=== PATIENT | male | born 1965 | race Caucasian/White ===

== ENCOUNTER 2018-04-04 14:00 | Outpatient (RCR) | payer BC, SELFPAY | END 2018-04-04 14:05 | disposition home or self-care (01) | LOC: PT 14:00 | PROVIDERS: Visit Provider Orthopaedic Surgery | DX: Z96.651 Presence of right artificial knee joint (principal) | CPT/HCPCS: 97010; 97014; 97016; 97110; 97140; 97163; G0283 ==

== ENCOUNTER → 2020-12-04 15:16 | Outpatient (CLI) | payer BC, SELFPAY | PROVIDERS: Visit Provider Internal Medicine Gastroenterology | DX: Z01.812 Encounter for preprocedural laboratory examination (principal); Z11.52 Encounter for screening for COVID-19; Z12.11 Encounter for screening for malignant neoplasm of colon | CPT/HCPCS: C9803; U0003; U0005 ==

== ENCOUNTER 2020-12-07 06:44 | Day surgery (SDC) | payer BC, SELFPAY ==
[2020-12-02 11:54] VITALS: BMI 29.0
[2020-12-07] VITALS (7 sets, daily range): BP systolic 135–176; BP diastolic 91–109; PULSE 53–80; RESP 18; TEMP 36.3–36.5; O2SAT 92–97
--- NOTE | 2020-12-07 08:04 | HMH.ANESCL ---
[facility] Anesthesia Checklist - Patient Identification Patient Identification: Arm Band - Structural Data Admitted From: Home Planned Operative Procedure/s: colonoscopy Consent for Planned Operative Procedure(s) Verified: Yes Verified Documents: Surgical Consent, History and Physical - NPO Status Verified Time NPO: 00:00 - Additional verifications Anesthesia Reactions: No - Airway Assessment C-Spine Mobility Assessed: Yes (mp2) TMJ Mobility Assessed: Yes Dentition: Good Dentition - Neurological Assessment Level of Consciousness: Awake, Alert - Anesthesia Plan Anesthesia Risk discussed: Yes Anesthesia Plan: Verified ASA Class: II Anesthesia Type: MAC [facility] History I have reviewed the patient's past medical history: Yes Medical History: Denies:: Cancer, Diabetes Mellitus Type 1, Diabetes Mellitus Type 2, Internal Pacemaker, MRSA, Seizures *Have you ever received a pneumonia vaccine?: No *Have you received a flu vaccine this season?: No Other Medical History: Reports: Hypothyroidism Anesthesia experience/problems:: nac Laterality Cases: Right: Total Knee Replacement Other Surgeries: Yes: Appendectomy, Hernia Repair, Thyroidectomy, Other. No: Pacemaker Amputation: No - *Social History Last grade of school completed: Advanced degree Smoking Status: Never smoker Alcohol Intake: current Alcohol Intake Frequency:: a few times a week Substance Use Type: denies use *Occupational Status:: employed Housing: house Household Members: spouse *Travel in the last 8 weeks: None Family Hx:: No significant family history
--- NOTE | 2020-12-07 08:08 | P.PCN_ITS ---
[facility] Procedure Note Procedure Note:: Colonoscopy Procedure Report: Colonoscopy with cold biopsies and cold snare polypectomy Endoscopist: Ted Hope II, MD Referring physician: Heriberto Mak MD Date of Procedure: December 07, 2020 Equipment: Olympus 190 variable stiffness pediatric colonoscope Sedation: MAC sedation Indication: Mr. Hines is a 55-year-old gentleman with the abrupt onset of diarrhea that occurred 10 days after his thyroidectomy in mid June 2020. He had antibiotics prior to the thyroidectomy (Dr. Vicente Rose) but his PCR gastrointestinal panel was negative for C. difficile and other bacterial pathogens. The patient did have a colonoscopy with wa in November 2017 and had left-sided diverticulosis but was otherwise normal. The patient was having up to 10 bowel movements a day before starting Lomotil. He reports that the Lomotil reduces his frequency by 50% (5-6 bowel movements daily). The patient reports no abdominal pain or crampy discomfort. He reports no blood or mucus with his bowel movements. He does have bowel urgency and frequency but no incontinence. He reports no gassiness or bloating. He reports no family history of colitis or colon cancer. His first cousin had Crohn's disease. Procedure: Prior to the procedure, a history and physical exam was performed, and patient's medications and allergies were reviewed. The risks, benefits and alternatives of the sedation and procedure were discussed with the patient. All questions were answered and informed consent was obtained. The patient was brought to the procedure room. Patient identification and proposed procedure were verified by the physician and the nurse. The patient was placed in a left lateral decubitus position and the scope was passed under direct vision. Throughout the procedure, the patient's blood pressure, pulse, and oxygen saturations were monitored continuously. The colonoscopy was accomplished without difficulty. The patient tolerated the procedure well. Findings: On digital rectal examination there was normal rectal tone. There were no external hemorrhoids. The prostate was 2+, mildly firm but symmetric without nodules. The colonoscope was introduced through the anal canal to the rectum and advanced to the cecum. The ileocecal valve and appendiceal orifice were identified. The scope was advanced a short distance into the ileum which appeared grossly normal. The scope was then withdrawn into the colon. The cecum, ascending and transverse colon and mucosa were grossly normal. Cold biopsies were taken from the right colon and separately from the left colon to rule out microscopic colitis. There was a diminutive 4 mm polyp in the descending colon and this was removed via cold snare polypectomy. There were scattered diverticuli throughout the descending and sigmoid colon (LEFT colon). The rectum itself was normal. Upon retroflexion within the rectum there were grade 1-2 internal hemorrhoids. The preparation was excellent throughout with [place] Preparation Score of 9. The cecal time was 12 minutes. Impression: 1. Diminutive descending colon polyp 2. Left-sided diverticulosis 3. Grade 1-2 internal hemorrhoids Plan: I will follow-up the biopsies to rule out microscopic colitis. If the biopsies are indicative of microscopic/lymphocytic colitis, I will prescribe budesonide (Entocort). If the biopsies are negative, I would consider Viberzi or Colestid. I would also consider imaging study of abdomen and pelvis. We will discuss treatment options.
--- NOTE | 2020-12-07 09:18 | SUR.PHASEII ---
DR HSIEH MADE AWARE OF HYPERTENSION. DISCUSSED WITH PT TO FOLLOW UP WITH PRIMARY CARE AND TO MONITOR BP OVER NEXT SEVERAL DAYS. PT AND SPOUSE VERBALIZED UNDERSTANDING.
== END 2020-12-07 09:23 | disposition home or self-care (01) ==
LOC: OUTP 06:48
PROVIDERS: PCP Internal Medicine; Visit Provider Internal Medicine Gastroenterology
PROC: 0DJD8ZZ Inspection of Lower Intestinal Tract, Via Natural or Artificial Opening Endoscopic (ICD-10-PCS; CPT 45378; principal; 2020-12-07 08:00)
DX: K63.5 Polyp of colon (principal); K57.32 Diverticulitis of large intestine without perforation or abscess without bleeding; K64.0 First degree hemorrhoids; E89.0 Postprocedural hypothyroidism; Z79.899 Other long term (current) drug therapy
CPT/HCPCS: 45385; 45380

== ENCOUNTER 2024-04-30 16:48 | Outpatient (CLI) | payer BC, SELFPAY ==
[2024-05-04 04:08] LABS: ALT (SGPT) P5P 84 IU/L (0-55); AST (SGOT) P5P 62 IU/L (0-40); Alpha 2-Macroglobulins, Qn 398 mg/dL (110-276); Apolipoprotein A-1 159 mg/dL (101-178); Bilirubin, Total 0.5 mg/dL (0.0-1.2); Cholesterol, Total 166 mg/dL (100-199); Fibrosis Score 0.75 (0.00-0.21); GGT 184 IU/L (0-65); Glucose 90 mg/dL (70-99); Haptoglobin 113 mg/dL (29-370); Steatosis Score 0.55 (0.00-0.40); Triglycerides 154 mg/dL (0-149)
== END 2024-04-30 23:59 | disposition home or self-care (01) ==
LOC: LAB 16:49
PROVIDERS: PCP Internal Medicine; Visit Provider Internal Medicine Gastroenterology
DX: K76.0 Fatty (change of) liver, not elsewhere classified (principal); R74.01 Elevation of levels of liver transaminase levels
CPT/HCPCS: 36415

== ENCOUNTER 2024-05-03 11:14 | Outpatient (CLI) | payer BC, SELFPAY ==
[2024-05-06 01:35] LABS: Pancreatic Elastase, Fecal >800 (>200)
== END 2024-05-03 23:59 | disposition home or self-care (01) ==
LOC: LAB.DROPOF 11:14
PROVIDERS: PCP Internal Medicine; Visit Provider Internal Medicine Gastroenterology
DX: R14.0 Abdominal distension (gaseous) (principal); R19.5 Other fecal abnormalities
CPT/HCPCS: 82656

== ENCOUNTER 2024-06-27 11:30 | Day surgery (SDC) | payer BC, SELFPAY ==
[2024-06-25 10:32] VITALS: BMI 27.9
[2024-06-27 11:58] VITALS: BP 139/70; PULSE 74; RESP 18; TEMP 36.4; O2SAT 97
[2024-06-27 13:15] VITALS: O2SAT 100
--- NOTE | 2024-06-27 13:15 | P.HP_ITS ---
History of Present Illness *Admission Date: 06/27/24 *Reason for visit:: Abdominal pain, bloating, gassiness and bowel irregularity *History of present illness: Mr. Hines is a 59-year-old gentleman who has a history of lymphocytic colitis. This was diagnosed at the time of his colonoscopy in November 2020. The patient was on budesonide initially for 12 weeks and tapered. His diarrhea recurred. He has been able to maintain control of symptoms and remission by taking budesonide 3 mg p.o. nightly. He does have some fragile bruising if he bumps into something on this treatment but otherwise has no side effects. The patient does state that 2 months ago while driving back from [facility], he developed severe cramps and had a very small bowel movement but could not urinate. He would pass very little stool and had several trips with incomplete defecation. 3 weeks later, he had the passage of a large amount of bright red blood for 2 days but this stopped. Formerly he would use hemorrhoid suppositories occasionally. The patient's colonoscopy in November 2020 reveale d a single polyp (tubular adenoma). The patient now reports some abdominal discomfort/mild abdominal pain that moves around the abdomen and can be on the left or right side. He does have this fairly frequently. He did have a CAT scan in [place] that was essentially normal. He also had blood work and had mildly elevated transaminases (AST 46, ALT 53). The CAT scan did show steatosis. The patient reports no alcohol. He does report a ridge in the center part of his abdomen when doing sit ups or strenuous exercise (diastases of the rectus abdominal muscle). He does have heterozygous alpha 1 antitrypsin phenotype MZ. [facility] Disclaimer: The information contained in this section may have been updated after the patient was seen, as this information can be updated by other users. Medical History (Updated 06/27/24 @ 13:17 by Ted Hope II, MD) Alpha 1-antitrypsin PiMS phenotype History of kidney stones GERD (gastroesophageal reflux disease) History of colitis Hypertension Bloating Surgical History Hx of hernia repair History of right knee joint replacement Hx of appendectomy Hx of partial thyroidectomy Family History Mother Breast cancer Social History Smoking Status: Never smoker alcohol intake: former substance use type: denies use current occupational status: employed Travel in the last 8 weeks: None household members: spouse housing: house current occupational exposures/hazards: No caffeine: No Have you lived/traveled outside US in past 30 days?: No Contact w/someone who lives/traveled outside US past 30 days?: No Exposure to someone with infectious disease in past 14 days?: No Do you have a fever (greater than 100.4 F or 38 C)?: No Have you tested positive for COVID-19: No Exposed to someone with COVID-19 in past 14 days?: No Do you have a sore throat?: No Do you have a cough?: No Do you have any weakness?: No Do you have any diarrhea?: No Are you experiencing any unusual bleeding?: No Do you have any muscle aches/pain?: No Do you have any abdominal pain?: No Are you experiencing loss of taste or smell?: No Other Medical History Have you received the Flu Vaccine for this season: No Have you received the Pneumonia Vaccine: No Review of Systems Review of Systems Review of systems (narrative): Negative *Cardiovascular Comments: Negative *Gastrointestinal Comments: Negative *Genitourinary Comments: Negative *Musculoskeletal Comments: Negative *Neurologic Comments: Negative Meds Home Medications and Allergies Home Medications ?Medication ?Instructions ?Recorded ?Confirmed ?Type omeprazole 20 mg tablet,delayed 20 mg PO DAILY GERD 12/07/20 06/25/24 History release allopurinol 300 mg tablet 300 mg PO DAILY 04/30/24 06/25/24 History budesonide 3 mg 3 mg PO DAILY 04/30/24 06/25/24 History capsule,delayed,extended release levocetirizine 5 mg tablet (Xyzal) 5 mg PO DAILY 04/30/24 06/25/24 History losartan 100 mg tablet 100 mg PO DAILY 04/30/24 06/25/24 History montelukast 10 mg tablet 10 mg PO DAILY 04/30/24 06/25/24 History sodium,potassium,mag sulfates 17.5 See Rx Instructions PO .COMPLEX 06/11/24 06/25/24 Rx gram-3.13 gram-1.6 gram oral soln #354 mL (Suprep Bowel Prep Kit) New Prescriptions to Start Prescriptions: Allergies Allergy/AdvReac Type Severity Reaction Status Date / Time No Known Allergies Allergy Verified 06/25/24 10:29 Exam Data for Last 24 hours Vital signs and Labs for Last 24 Hours: Temp Pulse Resp BP Pulse Ox O2 Del Method 97.6 F 74 18 139/70 97 Room Air 06/27/24 11:58 06/27/24 11:58 06/27/24 11:58 06/27/24 11:58 06/27/24 11:58 06/27/24 11:58 I & O for Last 24 hours: Intake & Output 06/24/24 06/25/24 06/26/24 06/27/24 23:59 23:59 23:59 23:59 Weight 195 lb *Routine HEENT Exam Head: Present normocephalic Eye: Present EOMI and PERRL ENT: Present mucous membranes moist *Routine Neck Exam Neck: Present supple *Routine Respiratory Exam Respiratory: Present CTA bilaterally *Routine Cardiovascular Exam Cardiovascular: Present RRR *Routine Abdominal Exam Abdominal: Present soft and normoactive bowel sounds; Absent tenderness *Routine Rectal Exam Rectal:: deferred *Routine Genitalia Exam Genitalia:: deferred *Routine Extremities Exam Extremities: Absent cyanosis, clubbing or edema *Routine Skin Exam Skin: Present warm; Absent rash *Routine Neurological Exam Neurological: Present alert and oriented X3 Assessment and Plan *Assessment and plan (1) Bloating: Status: Acute Category: Medical Code(s): R14.0 - Abdominal distension (gaseous) (2) Gassiness: Status: Acute Category: Medical Code(s): R14.0 - Abdominal distension (gaseous) (3) Abdominal pain: Status: Acute Category: Medical Code(s): R10.9 - Unspecified abdominal pain (4) Loose stools: Status: Acute Category: Medical Code(s): R19.5 - Other fecal abnormalities (5) Bright red blood per rectum: Status: Acute Category: Medical Code(s): K62.5 - Hemorrhage of anus and rectum Plan A/P: 1. Abdominal pain with bloating and gassiness with loose stools and interm ittent bright red blood per rectum is the preprocedural diagnosis. The patient will be anesthetized/sedated using MAC sedation. The patient has been seen and examined. Cardiac and lung assessment prior to the examination is stable. Proceed with planned EGD and colonoscopy
--- NOTE | 2024-06-27 13:24 | HMH.PROCNOTE ---
[facility] Procedure Note Date: 06/27/24 Time: 13:29 Procedure Note:: Upper Endoscopy Procedure Report: Esophagogastroduodenoscopy with cold biopsies Endoscopost: Ted Hope II, MD Referring Physician: Heriberto Mak MD Date of Procedure: June 27, 2024 Equipment: Olympus GIF 190 standard upper endoscope Sedation: MAC sedation Indications: Mr. Hines is a 59-year-old gentleman who is here for diagnostic upper endoscopy and colonoscopy. He does have a history of fatty liver on CAT scan and mildly elevated transaminases. His recent fibrosis or was indicative of stage F4 fibrosis/early cirrhosis. He previously has a history of lymphocytic colitis. This was diagnosed at the time of his colonoscopy in November 2020. The patient was on budesonide initially for 12 weeks and tapered. His diarrhea recurred. He has been able to maintain control of symptoms and remission by taking budesonide 3 mg p.o. nightly. He does have some fragile bruising if he bumps into something on this treatment but otherwise has no side effects. The patient does state that 2 months ago while driving back from [facility], he developed severe cramps and had a very small bowel movement but could not urinate. He would pass very little stool and had several trips with incomplete defecation. 3 weeks later, he had the passage of a large amount of bright red blood for 2 days but this stopped. Formerly he would use hemorrhoid suppositories occasionally. The patient's colonoscopy in November 2020 revealed a single polyp (tubular adenoma). The patient now reports some abdominal discomfort/mild abdominal pain that moves around the abdomen and can be on the left or right side. He does have this fairly frequently. He did have a CAT scan in [place] that was essentially normal. He also had blood work and had mildly elevated transaminases (AST 46, ALT 53). The CAT scan did show steatosis. The patient reports no alcohol. He does report a ridge in the center part of his abdomen when doing sit ups or strenuous exercise (diastases of the rectus abdominal muscle). He does have heterozygous alpha 1 antitrypsin phenotype MZ. Procedure: Prior to the procedure, a history and physical exam was performed, and patient's medications and allergies were reviewed. The risks, benefits and alternatives of the sedation and procedure were discussed with the patient. All questions were answered and informed consent was obtained. The patient was brought to the procedure room. Patient identification and proposed procedure were verified by the physician and the nurse. The patient was placed in a left lateral decubitus position and the scope was passed under direct vision. Throughout the procedure, the patient's blood pressure, pulse, and oxygen saturations were monitored continuously. The upper GI endoscopy was accomplished without difficulty. The patient tolerated the procedure well. Findings: The scope was passed directly into the upper esophagus and advanced to the third portion of the duodenum. The post bulbar duodenum and duodenal bulb were normal with normal mucosa and conniventes. The scope was withdrawn through a normal duodenal bulb and pylorus into the stomach. There was some mild reactive gastropathy of the antrum. The body and fundus of the stomach were normal. Upon retroflexion there was a very small sliding 1 to 2 cm hiatal hernia. Biopsies were taken from the antrum. The scope was then withdrawn into the esophagus. There was no evidence of reflux esophagitis or Longoria's. There appeared to be a very faint grade 0?1 esophageal varices. The remainder of the esophageal mucosa was normal. Impression: 1. Very faint grade 0?1 esophageal varices 2. Mild antral gastropathy Plan: There was no evidence of portal gastropathy. He does have very early well compensated cirrhosis/DUMONT and does have a history of heterozygous alpha 1 antitrypsin deficiency (phenotype MZ). We will discuss treatment options including Rezdiffra. I will proceed with colonoscopy.
--- NOTE | 2024-06-27 13:32 | P.PNANES_ITS ---
[facility] Disclaimer: The information contained in this section may have been updated after the patient was seen, as this information can be updated by other users. Medical History Alpha 1-antitrypsin PiMS phenotype History of kidney stones GERD (gastroesophageal reflux disease) History of colitis Hypertension Bloating Surgical History Hx of hernia repair History of right knee joint replacement Hx of appendectomy Hx of partial thyroidectomy Family History Mother Breast cancer Social History Smoking Status: Never smoker alcohol intake: former substance use type: denies use current occupational status: employed Travel in the last 8 weeks: None household members: spouse housing: house current occupational exposures/hazards: No caffeine: No Have you lived/traveled outside US in past 30 days?: No Contact w/someone who lives/traveled outside US past 30 days?: No Exposure to someone with infectious disease in past 14 days?: No Do you have a fever (greater than 100.4 F or 38 C)?: No Have you tested positive for COVID-19: No Exposed to someone with COVID-19 in past 14 days?: No Do you have a sore throat?: No Do you have a cough?: No Do you have any weakness?: No Do you have any diarrhea?: No Are you experiencing any unusual bleeding?: No Do you have any muscle aches/pain?: No Do you have any abdominal pain?: No Are you experiencing loss of taste or smell?: No [facility] Anesthesia Checklist Patient Identification Patient Identification: Arm Band and Verbal (Name & ) Structural Data Admitted From: Home Planned Operative Procedure/s: EGD, colonscopy Consent for Planned Operative Procedure(s) Verified: Yes Verified Documents: Surgical Consent NPO Status Verified Time NPO: 00:00 Additional verifications Anesthesia Reactions: No Airway Assessment Mallampati Score:: Class I Neurological Assessment Level of Consciousness: Awake, Alert and Appropriate Hx Seizures: No Numbness or tingling in extremities: No Anesthesia Plan Anesthesia Risk discussed: Yes Anesthesia Plan: Verified ASA Class: II Anesthesia Type: MAC
--- NOTE | 2024-06-27 13:33 | HMH.PROCNOTE ---
[facility] Procedure Note Date: 06/27/24 Time: 13:49 Procedure Note:: Colonoscopy Procedure Report: Colonoscopy with cold snare polypectomy and cold biopsies Endoscopist: Ted Hope II, MD Referring physician: Heriberto Mak MD Date of Procedure: June 27, 2024 Equipment: Olympus 190 variable stiffness pediatric colonoscope Sedation: MAC sedation Indication: Mr. Hines is a 59-year-old gentleman who is here for diagnostic upper endoscopy and colonoscopy. He does have a history of fatty liver on CAT scan and mildly elevated transaminases. His recent fibrosis or was indicative of stage F4 fibrosis/early cirrhosis. He previously has a history of lymphocytic colitis. This was diagnosed at the time of his colonoscopy in November 2020. The patient was on budesonide initially for 12 weeks and tapered. His diarrhea recurred. He has been able to maintain control of symptoms and remission by taking budesonide 3 mg p.o. nightly. He does have some fragile bruising if he bumps into something on this treatment but otherwise has no side effects. The patient does state that 2 months ago while driving back from [facility], he developed severe cramps and had a very small bowel movement but could not urinate. He would pass very little stool and had several trips with incomplete defecation. 3 weeks later, he had the passage of a large amount of bright red blood for 2 days but this stopped. Formerly he would use hemorrhoid suppositories occasionally. The patient's colonoscopy in November 2020 revealed a single polyp (tubular adenoma). The patient now reports some abdominal discomfort/mild abdominal pain that moves around the abdomen and can be on the left or right side. He does have this fairly frequently. He did have a CAT scan in [place] that was essentially normal. He also had blood work and had mildly elevated transaminases (AST 46, ALT 53). The CAT scan did show steatosis. The patient reports no alcohol. He does report a ridge in the center part of his abdomen when doing sit ups or strenuous exercise (diastases of the rectus abdominal muscle). He does have heterozygous alpha 1 antitrypsin phenotype MZ. Procedure: Prior to the procedure, a history and physical exam was performed, and patient's medications and allergies were reviewed. The risks, benefits and alternatives of the sedation and procedure were discussed with the patient. All questions were answered and informed consent was obtained. The patient was brought to the procedure room. Patient identification and proposed procedure were verified by the physician and the nurse. The patient was placed in a left lateral decubitus position and the scope was passed under direct vision. Throughout the procedure, the patient's blood pressure, pulse, and oxygen saturations were monitored continuously. The colonoscopy was accomplished without difficulty. The patient tolerated the procedure well. Findings: On digital rectal examination there was normal rectal tone. The colonoscope was introduced through the anal canal to the rectum and advanced to the cecum. The ileocecal valve and appendiceal orifice were identified. The scope was advanced a short distance into the ileum which appeared grossly normal. The scope was then withdrawn into the colon. There were 4 polyps (cecum x 1 (5 mm), ascending x 2 (5 and 18 mm (laterally spreading granular sessile adenoma) and transverse x 1 (5 mm)). These were all removed via cold snare polypectomy. There was a slightly mosaic pattern especially in the left colon (descending and sigmoid) suggestive of active lymphocytic colitis. Random biopsies were taken from both the right and left colon to rule out microscopic/lymphocytic colitis. There were scattered diverticuli throughout the descending and sigmoid colon (LEFT colon). The rectum itself was normal. Upon retroflexion within the rectum there were grade 2 internal hemorrhoids. The preparation was excellent throughout with [place] Preparation Score of 9. The cecal time was 17 minutes. Impression: 1. Ascending colon polyp (18 mm)?advanced adenoma 2. Additional 3 diminutive colon polyps 3. Left-sided diverticulosis 4. Mucosal mosaic pattern suggestive of active microscopic/lymphocytic colitis 5. Grade 2 internal hemorrhoids Plan: I will follow-up the polyp histology and recommend repeat surveillance colonoscopy again in 3 years based upon the size and nature of the adenomatous polyps. I will also follow-up the biopsies to rule out active lymphocytic colitis causing his diarrhea. I would like for him to continue bulking psyllium fiber supplementation. I would also recommend continuing budesonide if the lymphocytic colitis is active. We will discuss follow-up on the DUMONT and well compensated cirrhosis.
[2024-06-27 13:56] VITALS: BP 105/71; PULSE 89; RESP 18; TEMP 36.1; O2SAT 94
[2024-06-27 14:06] VITALS: BP 104/74; PULSE 75; RESP 18; O2SAT 97
[2024-06-27 14:16] VITALS: BP 104/78; PULSE 89; RESP 18; O2SAT 97
[2024-06-27 14:26] VITALS: BP 105/81; PULSE 73; RESP 18; O2SAT 96
== END 2024-06-27 14:35 | disposition home or self-care (01) ==
PROVIDERS: PCP Internal Medicine; Visit Provider Internal Medicine Gastroenterology
PROC: 0DJ08ZZ Inspection of Upper Intestinal Tract, Via Natural or Artificial Opening Endoscopic (ICD-10-PCS; CPT 45378; principal; 2024-06-27 13:30)
DX: D12.6 Benign neoplasm of colon, unspecified (principal); K63.5 Polyp of colon; K57.30 Diverticulosis of large intestine without perforation or abscess without bleeding; K64.1 Second degree hemorrhoids; K44.9 Diaphragmatic hernia without obstruction or gangrene; I85.00 Esophageal varices without bleeding; K31.9 Disease of stomach and duodenum, unspecified; R14.0 Abdominal distension (gaseous); R10.9 Unspecified abdominal pain; R19.5 Other fecal abnormalities; K62.5 Hemorrhage of anus and rectum; Z86.0100 Personal history of colon polyps, unspecified
CPT/HCPCS: 43239; 45380; 45385

== ENCOUNTER 2024-09-13 09:23 | Outpatient (CLI) | payer BC, SELFPAY ==
--- OUTSIDE RECORDS SUMMARY | 2024-09-13 09:25 | XMS_ITS | Clinical Summary ---
Author Organization Healthcare Address [address] [place] [address] Care Team Providers Care Manager Service Desk Name Role Phone Unavailable Primary Care Provider Unavailabl e Family History Medical History Relation Name Comments Breast cancer Mother Conversions - Other Mother Patient' s mother is Relation Name Status Comments Mother Social History Tobacco Use Types Packs/Day Years Used Date Smoking Tobacco: Never Sex and Gender Information Value Date Recorded Sex Assigned at Not on file Legal Sex Male 7:59 PM EDT Gender Identity Not on file Sexual Orientation Not on file Last Filed Vital Signs Vital Sign Reading Time Taken Comments Blood Pressure - - Pulse - - Temperature - - Respiratory Rate - - Oxygen Saturation - - Inhaled Oxygen Concentration - - Weight 95.3 kg (210 lb 0.2 oz) 08/11/2016 3:17 P M EDT Height 175.3 cm (5' 9 ) 08/11/2016 3:17 PM EDT Body Mass Index 31.01 08/11/2016 3:17 PM EDT Plan of Treatment Not on file
--- OUTSIDE RECORDS SUMMARY | 2024-09-13 09:25 | XMS_ITS | Referral Summary ---
Author Organization [facility] Address [address] [place] [address] Care Team Providers Care Burnisher Name Role Phone Unavailable Primary Care Provider Unavailabl e Social History Tobacco Use Types Packs/Day Years Used Date Smoking Tobacco: Never Assessed Sex and Gender Information Value Date Recorded Sex Assigned at Male 09/21/2021 8:20 PM CDT Legal Sex Male 8:20 PM CDT Gender Identity Male 09/21/2021 8:20 PM CDT Sexual Orientation Not on file Plan of Treatment Not on file
--- OUTSIDE RECORDS SUMMARY | 2024-09-13 09:25 | XMS_ITS | Clinical Summary ---
Author Organization [facility] Address [address] [place] [address] Care Team Providers Care [employer] Agriculture Teacher Name Role Phone Unavailable Primary Care Provider [...]
[2024-09-13 09:47] LABS: Basophils # 0.1 K/mm3 (0-0.2); Basophils % 0.7 % (0.1-2.0); Eosinophils # 0.3 Kmm3 (0.0-0.4); Eosinophils % 4.8 % (0.1-12.0); Hemoglobin 15.4 g/dL (14.1-18.0); Immature Granulocytes # 0.04 10^3uL; Immature Granulocytes % 0.6 %; Lymphocytes # 1.5 K/mm3 (0.7-4.5); Lymphocytes % 21.9 % (10-50); Mean Corpuscular HGB Conc 33.5 g/dL (31.8-35.4); Mean Corpuscular Hemoglobin 32.1 pg (27.0-31.2); Mean Corpuscular Volume 95.8 fl (80-94); Mean Platelet Volume 11.2 fl (7.4-10.4); Monocytes # 0.5 K/mm3 (0.1-1.0); Monocytes % 7.5 % (1.7-9.3); Neutrophils # 4.3 K/mm3 (1.8-7.8); Neutrophils % 64.5 % (37.0-80.0); Nucleated Red Blood Cells # 0 10^3/uL; Nucleated Red Blood Cells % 0 %; Platelet Count 165 K/mm3 (142-424); Red Cell Distribution Width 13.3 % (11.5-17.5); Red Cell Distribution Width-SD 47.7 fL; White Blood Count 6.7 K/mm3 (4.8-10.8)
[2024-09-13 10:10] LABS: Albumin Level 3.9 g/dl (3.5-5.0); Chloride 111 mmol/L (98-107); Potassium 4.6 mmoL/L (3.5-5.1); Sodium 143 mmol/L (136-145)
[2024-09-13 10:13] LABS: Alanine Aminotransferase 40 U/L (12-78); Albumin/Globulin Ratio 2.1 (1.1-1.8); Alkaline Phosphatase 112 U/L (38-126); Anion Gap 5.6 mEq/L (5-15); Aspartate Amino Transferase 53 U/L (17-59); Bilirubin,Total 1.1 mg/dl (0.2-1.3); Blood Urea Nitrogen 13 mg/dl (9-20); Calcium 8.9 mg/dl (8.4-10.2); Carbon Dioxide 31 mmol/L (22.0-30.0); Estimated Glomerular Filt Rate 99 ml/min (>60); GFR (African American) 119 ML/MIN (>60); Globulin 1.9 g/dL (1.3-3.2); Glucose 85 mg/dl (74-100); Total Protein,Serum 5.8 g/dl (6.3-8.2)
== END 2024-09-13 23:59 | disposition home or self-care (01) ==
LOC: LAB 09:23
PROVIDERS: PCP Internal Medicine; Visit Provider Internal Medicine Gastroenterology
DX: K76.0 Fatty (change of) liver, not elsewhere classified (principal)
CPT/HCPCS: 36415; 80053; 82172; 82247; 82465; 82947; 82977; 83010; 83883; 84450; 84460; 84478; 85025

== ENCOUNTER 2024-10-17 07:20 | Outpatient (CLI) | payer BC, SELFPAY ==
--- OUTSIDE RECORDS SUMMARY | 2024-10-17 07:23 | XMS_ITS | Clinical Summary ---
[facility] Organization [facility] Address [address] [place] [address] Care Team Providers Care Electronic Technician Name Role Phone Joey Mak MD Primary Care Provider Allergies No known active allergies Medications acyclovir (ZOVIRAX) 800 MG tablet Take 800 mg by mouth Daily. Active Social History Tobacco Use Types Packs/Day Years Used Date Smoking Tobacco: Never Smokeless Tobacco: Never Alcohol Use Standard Drinks/Week Comments Yes 0 (1 standard drink = 0.6 oz pur e alcohol) 1 mixed drink/week Abuse Screen Answer Date Recorded Unsafe at Home or Work/School Not on file Feels Threatened by Someone? Not on file 01/2023 Does Anyone Keep You from Co ntacting Others or Doint Things Outside the Home? Not on file 01/04/2023 Physical Sign of Abuse Present Not on file 1 Housing Stability Answer Date Recorded Current Living Arrangements Not on file 12/25 Potentially Unsafe Housing Conditions Not on car e 01/04/2023 Family and Community Support Answer Ambrocio e Recorded Help with Day-to-Day Activities Not on file 01/04/2023 Lonely or Isolated Not on file 01/04/2023 Employment Answer Date Recorded Do you want help finding or keeping work or a adam b? Not on file 01/04/2023 Disabilities Answer Date Recorded Concentrating, Remembering, or Making Decisions Difficulty Not on file 01/04/2023 Doing Errands Independently Difficulty Not on fi le 01/04/2023 Education Answer Date Recorded Help with school or training? Not on file Preferred Language Not on file 01/04/2023 Sex and Gender Information Value Date Recorded Sex Assigned at Not on file Legal Sex Male 10:10 AM EST Gender Identity Not on file Sexual Orientation Not on file Last Filed Vital Signs Vital Sign Reading Time Taken Comments Blood Pressure 144/87 04/21/2021 9:20 AM EST Pulse 72 04/21/2021 9:20 AM EST Temperature 36.1 C (97 F) 04/21/2021 9:20 AM EST Respiratory Rate 16 04/21/2021 9:20 AM EST Oxygen Saturation 97% 04/21/2021 9:20 AM EST Inhaled Oxygen Concentration - - Weight 91.6 kg (202 lb) 04/21/2021 6:29 AM EST Height 177.8 cm (5' 10 ) 04/21/2021 6:29 AM EST Body Mass Index 28.98 04/21/2021 6:29 AM EST Plan of Treatment Health Maintenance Due Date Last Done Comments TDAP/TD VACCINES (1 - Tdap) 01/07/1983 COLOGUARD 01/07/2009 COLON CANCER SCREENING 5 YEAR SIGMOIDOSCOPY 01/07/2009 COLONOSCOPY 01/07/2009 COLORECTAL CANCER SCREENING 01/07/2009 CT COLONOGRAPHY 01/07/2009 FECAL OCCULT BLOOD TEST 01/07/2009 FIT Testing (1 year) 01/07/2009 Pneumococcal Vaccine 50+ (1 of 1 - PCV) 01/07/2014 ZOSTER VACCINE (1 of 2) 01/07/2014 ANNUAL PHYSICAL 04/19/2020 HEPATITIS C SCREENING 04/19/2020 COVID-19 Vaccine (2 - 2023- season) 2023 INFLUENZA VACCINE 12/25/2024 Insurance [facility] PPO Care Teams Electronic Technician Relationship Specialty Start Date End Date Joey Mak MD PCP - General Internal Medicine 04/13/20
--- OUTSIDE RECORDS SUMMARY | 2024-10-17 07:23 | XMS_ITS | Clinical Summary ---
Author Organization [facility] ([place], [place], [place], [place]) Address [address] [place] [address] Care Team Providers Care As400 Administrator Name Role Phone Unavailable Primary Care Provider [...]
--- OUTSIDE RECORDS SUMMARY | 2024-10-17 07:23 | XMS_ITS | Referral Summary ---
Author Organization [facility] ([place], [place], [place], [place]) Address [address] [place] [address] Care Team Providers Care Fun House Attendant Name Role Phone Unavailable Primary Care Provider [...]
--- OUTSIDE RECORDS SUMMARY | 2024-10-17 07:23 | XMS_ITS | Clinical Summary ---
Author Organization [facility] Address [address] [place] [address] Care Team Providers Care Coping Machine Operator Name Role Phone Unavailable Primary Care Provider [...]
--- NOTE | 2024-10-17 07:30 | US_ITS ---
FINAL REPORT TECHNIQUE: Multiple transverse and longitudinal images CLINICAL HISTORY: montalvo FINDINGS: There is cholelithiasis with at least 1 gallstone seen in the proximal gallbladder measuring up to 17 mm. No acute gallbladder disease. Evidence of biliary obstruction. No biliary ductal dilatation is appreciated. No fluid collections are seen. Limited portions of the right liver are unremarkable. Limited portions of the right kidney are unremarkable. Pancreas is largely obscured. IMPRESSION: Unremarkable liver. Uncomplicated cholelithiasis. Reviewed, Interpreted and Dictated by Kenya Martinez MD Transcribed by Astrid Hernández Authenticated and [facility]
[2024-10-17 08:13] LABS: Hematocrit 46.0 % (42.0-52.0); Hemoglobin 14.9 g/dL (14.1-18.0); Immature Granulocytes % 0.3 %; Mean Corpuscular HGB Conc 32.4 g/dL (31.8-35.4); Mean Corpuscular Hemoglobin 31.4 pg (27.0-31.2); Mean Corpuscular Volume 97.0 fl (80-94); Nucleated Red Blood Cells % 0 %; Platelet Count 129 K/mm3 (142-424); Red Blood Count 4.74 M/mm3 (4.60-6.20); Red Cell Distribution Width-SD 47.2 fL; White Blood Count 6.4 K/mm3 (4.8-10.8)
[2024-10-17 08:23] LABS: Ammonia < 9 umol/L (9-30); INR 1.14 (0.9-1.1); Prothrombin Time 12.5 seconds (10.1-12.5)
[2024-10-17 08:46] LABS: Alanine Aminotransferase 45 U/L (12-78); Albumin Level 3.9 g/dl (3.5-5.0); Albumin/Globulin Ratio 2.2 (1.1-1.8); Alkaline Phosphatase 118 U/L (38-126); Anion Gap 9.1 mEq/L (5-15); Aspartate Amino Transferase 51 U/L (17-59); Bilirubin,Total 1.3 mg/dl (0.2-1.3); Blood Urea Nitrogen 18 mg/dl (9-20); Calcium 9.2 mg/dl (8.4-10.2); Carbon Dioxide 28 mmol/L (22.0-30.0); Chloride 107 mmol/L (98-107); Creatinine,Serum 0.90 mg/dl (0.66-1.25); Estimated Glomerular Filt Rate 86 ml/min (>60); GFR (African American) 104 ML/MIN (>60); Globulin 1.8 g/dL (1.3-3.2); Glucose 94 mg/dl (74-100); Potassium 4.1 mmoL/L (3.5-5.1); Sodium 140 mmol/L (136-145); Total Protein,Serum 5.7 g/dl (6.3-8.2)
[2024-10-17 09:38] LABS: Iron 82 ug/dL (49-181)
[2024-10-17 09:47] LABS: Total Iron Binding Capacity 287 ug/dL (261-462)
[2024-10-17 10:15] LABS: Ferritin 141 ng/ml (17.9-464)
== END 2024-10-17 23:59 | disposition home or self-care (01) ==
PROVIDERS: PCP Internal Medicine; Visit Provider Nurse Practitioner Family
DX: K80.20 Calculus of gallbladder without cholecystitis without obstruction (principal); K75.81 Nonalcoholic steatohepatitis (NASH); K74.60 Unspecified cirrhosis of liver
CPT/HCPCS: 36415; 76705; 80053; 82105; 82140; 82728; 83540; 83550; 85025; 85610